=== PATIENT | female | born 1960 | race Caucasian/White ===

== ENCOUNTER 2023-06-12 05:59 | Day surgery (SDC) | payer OTHER ==
[2023-06-09 10:33] VITALS: BMI 33.2
[2023-06-12] MEDS ORDERED: Mupirocin 2% Ointment 22 GM Tube ONE (07:37)
[2023-06-12] MEDS ORDERED: Lidocaine 1% w/Epinephrine 1:100K 20 ML VIAL ONE (07:37)
[2023-06-12] MEDS ORDERED: fentaNYL 50 mcg/mL 1 mL Vial ONE ×2 (08:25→09:33)
[2023-06-12] MEDS ORDERED: Lidocaine 1% PF 5 ML VIAL ONE ×2 (08:26→09:19)
[2023-06-12] MEDS ORDERED: Dexamethasone 20 MG/5 ML VIAL ONE (08:26)
[2023-06-12] MEDS ORDERED: Ondansetron PF 4 MG/2 ML Vial ONE (08:26)
[2023-06-12] MEDS ORDERED: SUGAMMADEX SODIUM 200 MG/2 ML VIAL ONE (08:27)
[2023-06-12] MEDS ORDERED: Lidocaine 2% PF 5 ML VIAL ONE (08:28)
[2023-06-12] MEDS ORDERED: Clindamycin/D5W 600 mg/50 ml Premix Bag ONE (08:42)
[2023-06-12] MEDS ORDERED: PROPOFOL 20 ML ONE ×2 (09:16)
[2023-06-12] MEDS ORDERED: Esmolol 100 MG/10 ML VIAL ONE (09:16)
[2023-06-12] MEDS ORDERED: PHENYLEPHRINE-NS 100 MCG/ML 10 ML SYRINGE ONE (09:16)
[2023-06-12] MEDS ORDERED: Lidocaine 4% PF 5 ML AMP ONE (09:19)
[2023-06-12] MEDS ORDERED: Rocuronium Bromide 10 MG/ML (10ML VIAL) ONE (09:19)
[2023-06-12] MEDS ORDERED: HYDROcodone/Acetaminophen 5/325 mg Tablet ONE (11:23)
== END 2023-06-12 12:20 | disposition home or self-care (01) ==
LOC: CSHSDC 05:59
PROVIDERS: ATTEND Otolaryngology Plastic Surgery within the Head & Neck
PROC: 0CB80ZZ Excision of Right Parotid Gland, Open Approach (ICD-10-PCS; principal; 2023-06-12)
DX: D11.0 Benign neoplasm of parotid gland (principal); Z88.1 Allergy status to other antibiotic agents; Z88.0 Allergy status to penicillin; Z88.8 Allergy status to other drugs, medicaments and biological substances; Z79.82 Long term (current) use of aspirin; Z79.899 Other long term (current) drug therapy; Z98.890 Other specified postprocedural states
CPT/HCPCS: 88307; 88341; 88342; J1100; J2001; J2405; J2704; J3010; J3490